=== PATIENT | male | born 1970 | race Hispanic/Latino ===

== ENCOUNTER 2020-10-06 16:56 | Emergency (ER) | payer OTHER ==
[~2020-10-06] VITALS: Ht 182.9 cm; Wt 88.9 kg
[2020-10-06] MEDS ORDERED: SODIUM CHLORIDE 0.9% 1000ML 1,000 ML IV SCH (17:15)
[2020-10-06 17:17] LABS: BASOPHILS # (AUTO) 0.1 (0.0-0.1); BASOPHILS % 0.6 % (0.0-1.0); EOSINOPHILS # (AUTO) 0.1 (0.0-0.4); HEMATOCRIT 38.5 % (38.2-49.6); HEMOGLOBIN 13.3 g/dL (14.0-18.0); LYMPHOCYTES # (AUTO) 2.1 (1.0-3.2); LYMPHOCYTES % 22.6 % (18.0-39.1); MEAN CORPUSCULAR HGB CONC 34.5 g/dL (31-35); MEAN CORPUSCULAR VOLUME 86.9 fL (81-99); MONOCYTES # (AUTO) 0.6 (0.2-0.8); MONOCYTES % 6.4 % (4.4-11.3); NEUTROPHILS # (AUTO) 6.4 (2.1-6.9); NEUTROPHILS % 69.1 % (38.7-80.0); PLATELET COUNT 276 x10e3/uL (140-360); RED BLOOD COUNT 4.43 x10e6/uL (4.3-5.7); RED CELL DISTRIBUTION WIDTH 12.5 % (11.7-14.4)
[2020-10-06 17:31] LABS: ANION GAP 13.6 mmol/L (8-16); CREATININE, SERUM 1.25 mg/dL (0.72-1.25); POTASSIUM 3.6 mmol/L (3.5-5.1)
[2020-10-06] MEDS ORDERED: INSULIN REGULAR, HUMAN 100 UNIT/1 ML IV ONE (17:45)
== END 2020-10-06 19:36 | disposition home or self-care (01) ==
LOC: ER 17:15
DX: E11.65 Type 2 diabetes mellitus with hyperglycemia (principal); I10 Essential (primary) hypertension
CPT/HCPCS: 36415; 80048; 82948; 85025; 99283; J1817; J7030